=== PATIENT | male | born 1975 | race Caucasian/White ===

== ENCOUNTER 2021-04-02 15:15 | Emergency (ER) | payer OTHER ==
[2021-04-02 17:41] LABS: HEMOGLOBIN 16.4 gm/dl (14.0-17.5); RED BLOOD COUNT 5.3 M/UL (4.20-5.50); WHITE BLOOD COUNT 4.2 K/UL (4.5-11.0)
[2021-04-02 18:00] LABS: BUN/CREATININE RATIO 9 (0-10)
[2021-04-02] MEDS ORDERED: MEDROL DOSEPAK 24 MG PO (19:05)
[2021-04-02] MEDS ORDERED: LOMOTIL 2.5-0.1 EACH PO (19:05)
== END 2021-04-02 19:45 | disposition home or self-care (01) ==
LOC: ER1 15:15
PROVIDERS: Physician Assistant Medical
DX: U07.1 COVID-19 (principal); E78.5 Hyperlipidemia, unspecified; I10 Essential (primary) hypertension; Z90.89 Acquired absence of other organs
CPT/HCPCS: 71045; 80053; 81001; 85025; 93005; 96374; 99284; J2930; U0002

== ENCOUNTER → 2021-05-14 | Outpatient (CLI) | payer OTHER ==
[~2021-05-14] MED LIST: LOMOTIL 2.5-0.1 EACH PO; MEDROL DOSEPAK 24 MG PO
== END ==
LOC: HEART 5 11:00
DX: R07.9 Chest pain, unspecified (principal); I10 Essential (primary) hypertension
CPT/HCPCS: 93306

== ENCOUNTER → 2021-05-29 | Outpatient (CLI) | payer OTHER | LOC: HEART 5 05-22 08:45 | DX: I20.9 Angina pectoris, unspecified (principal); R07.9 Chest pain, unspecified; R94.30 Abnormal result of cardiovascular function study, unspecified | CPT/HCPCS: 78452; A9502; J2785 ==

== ENCOUNTER → 2021-06-07 | Outpatient (CLI) | payer OTHER ==
[~2021-06-07] VITALS: Ht 188 cm; Wt 99.8 kg
[~2021-06-07] MED LIST changes: +ASPIRIN CHEWABL81 MG PO; +DILT-XR120 MG PO; +ESCITALOPRAM OX20 MG PO; +HYDROCHLOROTHIA50 MG PO; +HYDROXYZINE HCL50 MG PO; +LAMOTRIGINE100 MG PO; +LISINOPRIL40 MG PO; +OMEGA-3 ACID ETH1 GM PO; +RANOLAZINE ER500 MG PO; +TADALAFIL5 MG PO; +VIAGRA25 MG PO
[2021-06-07 08:41] LABS: HEMOGLOBIN 16.5 gm/dl (14.0-17.5); RED BLOOD COUNT 5.27 M/UL (4.20-5.50); WHITE BLOOD COUNT 4.3 K/UL (4.5-11.0)
[2021-06-07 08:57] LABS: BUN/CREATININE RATIO 6 (0-10)
== END ==
LOC: CATH 08:00
PROVIDERS: Internal Medicine Cardiovascular Disease
DX: I25.119 Atherosclerotic heart disease of native coronary artery with unspecified angina pectoris (principal); I10 Essential (primary) hypertension; E78.5 Hyperlipidemia, unspecified; R94.39 Abnormal result of other cardiovascular function study; G47.33 Obstructive sleep apnea (adult) (pediatric)
CPT/HCPCS: 80048; 85025; 85610; 93005; 99152; C1769; C1894; J1644; J2250; J3010; J7030; Q9967